=== PATIENT | female | born 1945 | race Hispanic/Latino ===

== ENCOUNTER → 2018-11-16 | Day surgery (SDC) | payer MEDICARE ==
[~2018-11-16] MED LIST: BALANCED SALT SOLN (OPTH) 15 ML BTL IO ONE; DIPHENHYDRAMINE HCL INJ 50 MG/ML VIAL ONE; FENTANYL CITRATE/PF 100MCG/2 ML INJ ONE; HYDROCHLOROTHIA25 MG PO; LIDOCAINE 2%/ EPINEPHRINE 20ML MDV ONE; LOVASTATIN20 MG PO; MIDAZOLAM HCL 2 MG/2 ML VIAL ONE; MITOMYCIN-PF OPTH SYRINGE 0.3 MG/ML OP ONE; MOXIFLOXACIN HCL(OPTH) 3 ML BTL OP ONE; NEOMYCIN/POLYMYXIN/DEX (OPTH) 3.5 GM TUBE ONE; NORVASC5 MG PO; POVIDONE IODINE 5% (OPTH) 30 ML BTL ONE; PROMETHAZINE HCL (IM) 25 MG/ML VIAL ONE
[2018-11-16 17:15] VITALS: BP 133/75
--- NOTE | 2018-11-17 01:24 | Operative Report ---
DATE OF PROCEDURE: 11/16/2018 SURGEON: Luís Fuentes MD PREOPERATIVE DIAGNOSIS: Very large nasal pterygium, left eye. POSTOPERATIVE DIAGNOSIS: Very large nasal pterygium, left eye. PROCEDURES: 1. Pterygium excision, left eye, nasal. 2. Amniotic membrane graft placement in the left eye, nasal. 3. Superficial keratectomy, left eye, nasal. 4. Mitomycin-C 0.25 mg/mL, left eye, nasal for 60 seconds. ANESTHESIA: MAC. COMPLICATIONS: None. Amniotic membrane serial number is [id number]. DESCRIPTION OF PROCEDURE: The patient was taken to the operating room, where she was prepped and draped in the usual sterile ophthalmic way. A lid speculum was placed in the left eye and the pterygium was localized. It was marked using a marker and 2% lidocaine with epinephrine was injected into the pterygium. Once this was done, Baljinder scissors were used to remove the pterygium from the sclera and the corneum and sent to pathology. Once this was done, Wet-Field cautery was used to control any bleeding. Once this was removed, a fawn was used to perform a superficial keratectomy and removed the residual debris from the cornea. Cottonoid was soaked in mitomycin 0.25 mg/mL and placed at the edge of the conj for 60 seconds. Copious amounts of BSS solution were used to irrigate this off. The amniotic membrane graft measured 10 x 15 mm, it was cut to size and secured using fibrin and thrombin glue. Excess glue and tissue were removed with Baljinder scissors. The patient tolerated the procedure well, had Maxitrol ointment, patch, and Bass shield placed in the eye. The patient will be seen in my office tomorrow. Luís Fuentes MD SES/MODL /[id number]
== END | disposition home or self-care (01) ==
LOC: OR 12:16
PROVIDERS: ATTEND Ophthalmology
DX: H11.052 Peripheral pterygium, progressive, left eye (principal); I10 Essential (primary) hypertension; E78.5 Hyperlipidemia, unspecified
CPT/HCPCS: 65426; 88304; J1200; J2001; J2250; J2550; J7315; V2790